=== PATIENT | female | born 2000 | race Caucasian/White ===

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

== ENCOUNTER 2019-02-19 15:13 | Emergency (ER) | payer SELFPAY ==
[~2019-02-19] VITALS: Ht 157.5 cm; Wt 59.1 kg
[2019-02-19 15:17] VITALS: TEMP 98.3
[2019-02-19] MEDS ORDERED: BIRTH CONTROL PO (15:23)
[2019-02-19 15:44] LABS: COLLECTION METHOD CLEAN CATCH
[2019-02-19 15:55] LABS: MUCOUS Present /lpf; PH 8 (5-8); SQUAMOUS EPITHELIAL 20-50 /hpf; URINE APPEARANCE Cloudy; URINE BACTERIA Rare /hpf; URINE BILIRUBIN Negative (NEGATIVE); URINE BLOOD Negative (NEGATIVE); URINE COLOR Yellow; URINE GLUCOSE Negative (NEGATIVE); URINE KETONE Negative (NEGATIVE); URINE LEUKOCYTE ESTERASE 1+ (NEGATIVE); URINE NITRATE Negative (NEGATIVE); URINE PROTEIN(semi-quant) Negative (NEGATIVE); URINE RBC 0-2 /hpf; URINE UROBILINOGEN Negative (NEGATIVE)
[2019-02-19] MEDS ORDERED: MACROBID 1100 MG/CAP PO (16:17)
[2019-02-19 16:28] VITALS: BP 107/55; PULSE 85
== END 2019-02-19 16:28 | disposition home or self-care (01) ==
LOC: COL.ER 15:13
PROVIDERS: Physician Assistant
DX: N39.0 Urinary tract infection, site not specified (principal); F17.210 Nicotine dependence, cigarettes, uncomplicated

== ENCOUNTER 2019-04-01 03:40 | Emergency (ER) | payer SELFPAY ==
[~2019-04-01] VITALS: Ht 157.5 cm; Wt 59.1 kg
[~2019-04-01 03:40] MED LIST changes: +BIRTH CONTROL PO
[2019-04-01 04:48] LABS: BASO # 0.1 (0.0-0.2); BASO % 0.7 % (0.0-2.0); EOS # 0.2 (0.0-0.7); EOS % 1.9 % (0-4.0); GRAN # 4.6 (1.4-6.5); GRAN % 56.5 % (42.2-75.2); HEMATOCRIT 37.6 % (35.0-45.0); HEMOGLOBIN 12.7 g/dl (12.0-15.0); LYMPH # 2.5 (1.2-3.4); LYMPH % 31.6 % (20.0-51.0); MEAN CELL VOLUME 86 fl (80.0-95.0); MEAN CORPUSCULAR HEMOGLOBIN 29 pg (26.0-32.0); MEAN CORPUSCULAR HGB CONC 34 g/dl (33.0-37.0); MEAN PLATELET VOLUME 10.5 fl (7.4-10.4); MONO # 0.7 (0.1-0.6); MONO % 8.8 % (1.7-9.3); PLATELET COUNT 291 K/mm3 (130-400); REDCELL DISTRIBUTION WIDTH-CV 12.9 % (11.5-14.5)
[2019-04-01 04:57] LABS: INR 0.9 (0.8-3.0); PROTHROMBIN TIME 10.7 SECONDS (9.7-12.8)
[2019-04-01 05:00] LABS: ALANINE AMINOTRANSFERASE 22 U/L (9-52); ALBUMIN 4.5 gm/dL (3.5-5.0); ALKALINE PHOSPHATASE 85 U/L (50-136); ANION GAP 10 mmol/L (7-16); AST,SGOT 21 U/L (15-37); BILIRUBIN,TOTAL 0.4 mg/dL (0.0-1.0); BLOOD UREA NITROGEN 11 mg/dL (7-17); CALCIUM 9.3 mg/dL (8.4-10.2); CARBON DIOXIDE 23 mmol/L (22-30); CHLORIDE 107 mmol/L (98-107); CREATININE, serum 0.57 (0.52-1.25); GLUCOSE 93 mg/dL (74-106); LIPASE 36 U/L (23-300); POTASSIUM 3.6 mmol/L (3.4-5.0); SODIUM 140 mmol/L (137-145); TOTAL PROTEIN 7.9 gm/dL (6.4-8.2)
[2019-04-01 05:05] LABS: D-DIMER < 200.00 ng/mLDDu (200-230)
[2019-04-01 05:20] LABS: TROPONIN-I < 0.012 ng/mL (0.000-0.035)
[2019-04-01 06:21] VITALS: BP 109/76; PULSE 86; TEMP 98.2
== END 2019-04-01 06:23 | disposition home or self-care (01) ==
LOC: COL.ER 03:40
PROVIDERS: Emergency Medicine
DX: R07.89 Other chest pain (principal)
CPT/HCPCS: J1885; J7030

== ENCOUNTER 2019-09-03 12:43 | Outpatient (RCR) | payer OTHER ==
[2019-09-04] MEDS ORDERED: CEPHALEXIN500 M1 PO ×2 (13:59→14:03)
== END 2019-11-13 | disposition home or self-care (01) ==
LOC: WSOH
DX: S39.012A Strain of muscle, fascia and tendon of lower back, initial encounter (principal); Z98.890 Other specified postprocedural states; F17.210 Nicotine dependence, cigarettes, uncomplicated; Y99.0 Civilian activity done for income or pay

== ENCOUNTER 2019-09-04 13:02 | Emergency (ER) | payer SELFPAY ==
[~2019-09-04] VITALS: Ht 157.5 cm; Wt 54.5 kg
[2019-09-04 13:08] VITALS: BP 122/78; TEMP 98.3
[2019-09-04 13:25] LABS: COLLECTION METHOD CLEAN CATCH
[2019-09-04 13:45] LABS: PH 6 (5-8); SQUAMOUS EPITHELIAL 0-2 /hpf; URINE APPEARANCE Clear; URINE BACTERIA None Seen /hpf; URINE BILIRUBIN Negative (NEGATIVE); URINE BLOOD 1+ (NEGATIVE); URINE COLOR Amber; URINE GLUCOSE Negative (NEGATIVE); URINE KETONE Negative (NEGATIVE); URINE LEUKOCYTE ESTERASE Negative (NEGATIVE); URINE NITRATE Positive (NEGATIVE); URINE PROTEIN(semi-quant) Negative (NEGATIVE); URINE RBC 0-2 /hpf; URINE UROBILINOGEN >=4.0 mg/dL (NEGATIVE)
[2019-09-04] MEDS ORDERED: CEPHALEXIN500 M1 PO ×2 (13:59→14:03)
[2019-09-04 14:40] VITALS: PULSE 91
== END 2019-09-04 14:40 | disposition home or self-care (01) ==
LOC: COL.ER 13:02
PROVIDERS: Physician Assistant
DX: N39.0 Urinary tract infection, site not specified (principal); F17.210 Nicotine dependence, cigarettes, uncomplicated